=== PATIENT | male | born 1995 | race Caucasian/White ===

== ENCOUNTER 2016-12-15 10:54 | Emergency (ER) | payer OTHER ==
[2016-12-15 11:02] VITALS: BP 120/76; PULSE 77; RESP 16; TEMP 98.1; O2SAT 95
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
[2016-12-15] MEDS ORDERED: IOPAMIDOL (ISOVUE-300) 100 ML BTL IV ONE (12:51)
== END 2016-12-15 14:07 | disposition home or self-care (01) ==
DX: S30.1XXA Contusion of abdominal wall, initial encounter (principal); S49.92XA Unspecified injury of left shoulder and upper arm, initial encounter; V29.9XXA Motorcycle rider (driver) (passenger) injured in unspecified traffic accident, initial encounter; Y92.410 Unspecified street and highway as the place of occurrence of the external cause
CPT/HCPCS: 82947-QW; Q9967